=== PATIENT | female | born 1960 | race Caucasian/White ===

== ENCOUNTER → 2016-08-29 | Outpatient (CLI) | payer MEDICARE ==
[~2016-08-29] MED LIST: LEVAQUIN500 MG PO
== END ==
LOC: HEART 5 13:52
DX: J44.1 Chronic obstructive pulmonary disease with (acute) exacerbation (principal); J45.909 Unspecified asthma, uncomplicated; R06.02 Shortness of breath
CPT/HCPCS: 94010

== ENCOUNTER → 2016-11-13 | Outpatient (CLI) | payer MEDICARE | LOC: KOH-I 10:02 | DX: R10.30 Lower abdominal pain, unspecified (principal); K59.00 Constipation, unspecified | CPT/HCPCS: 74000 ==

== ENCOUNTER → 2021-01-12 | Outpatient (CLI) | payer MEDICARE ==
[~2021-01-12] MED LIST changes: +CLARITIN10 MG PO; +KEPPRA500 MG PO; +PROTONIX40 MG PO; +SINGULAIR10 MG PO; +VITAMIN B-12500 MCG PO; +ZESTRIL5 MG PO
[2021-01-12 12:53] LABS: HEMOGLOBIN 11.2 gm/dl (12.3-15.3); RED BLOOD COUNT 4.32 M/UL (4.00-5.10); WHITE BLOOD COUNT 9.9 K/UL (4.5-11.0)
[2021-01-12 13:23] LABS: BUN/CREATININE RATIO 13 (0-10)
== END ==
LOC: LAB 12:07
PROVIDERS: Emergency Medicine
DX: R10.13 Epigastric pain (principal); J01.01 Acute recurrent maxillary sinusitis; J20.9 Acute bronchitis, unspecified
CPT/HCPCS: 36415; 80053; 83690; 85027

== ENCOUNTER → 2022-01-09 | Day surgery (SDC) | payer OTHER ==
[~2022-01-09] MED LIST changes: +FLONASE 0.05% N16 GM; +IBUPROFEN800 MG PO; +IPRAT-ALBUT 0.5-3 ML INH; +ONDANSETRON ODT4 MG PO; +PROAIR HFA8.5 GM INH
== END | disposition home or self-care (01) ==
LOC: OR 08:08
DX: D12.2 Benign neoplasm of ascending colon (principal); K29.50 Unspecified chronic gastritis without bleeding; D50.0 Iron deficiency anemia secondary to blood loss (chronic); K44.9 Diaphragmatic hernia without obstruction or gangrene; K21.00 Gastro-esophageal reflux disease with esophagitis, without bleeding; I10 Essential (primary) hypertension; J44.9 Chronic obstructive pulmonary disease, unspecified; M19.90 Unspecified osteoarthritis, unspecified site; Z87.891 Personal history of nicotine dependence; Z88.8 Allergy status to other drugs, medicaments and biological substances; Z79.899 Other long term (current) drug therapy
CPT/HCPCS: J2704; J7040